=== PATIENT | male | born 1945 | race American Indian/Alaskan Native ===

== ENCOUNTER 2017-10-25 22:18 | Emergency (ER) | payer MEDICARE ==
[2017-10-25 23:35] LABS: Basophils # (Auto) 0.1 K/mm3 (0.0-0.1); Basophils % (Auto) 0.9 % (0.0-1.8); Eosinophils # (Auto) 0.2 K/mm3 (0.0-0.4); Eosinophils % (Auto) 3.1 % (0.0-4.3); Hematocrit 44.6 % (35.5-45.6); Hemoglobin 14.5 gm/dl (11.8-15.2); Lymphocytes # (Auto) 1.8 K/mm3 (1.2-5.4); Lymphocytes % (Auto) 22.5 % (13.4-35.0); Mean Corpuscular HGB Conc 33 % (32-34); Mean Corpuscular Hemoglobin 30 pg (28-32); Mean Corpuscular Volume 92 fl (84-94); Monocytes # (Auto) 0.8 K/mm3 (0.0-0.8); Monocytes % (Auto) 9.8 % (0.0-7.3); Platelet Count 230 K/mm3 (140-440); Red Blood Count 4.87 M/mm3 (3.65-5.03); Red Cell Distribution Width 14.9 % (13.2-15.2)
--- NOTE | 2017-10-25 23:36 | XRay Report ---
FINAL REPORT EXAM: XR CHEST ROUTINE 2V HISTORY: Shortness of breath TECHNIQUE: Two view chest PA and lateral PRIORS: None. FINDINGS: Cardiac and mediastinal contours are unremarkable. No focal pulmonary infiltrate is identified. No pleural fluid collection seen. Pulmonary vasculature is unremarkable. IMPRESSION: Negative two-view chest
[2017-10-26] LABS: BUN/Creatinine Ratio 14; Blood Urea Nitrogen 19 mg/dL (9-20); Calcium 9.4 mg/dL (8.4-10.2); Hemolysis Index 8
[2017-10-26 01:10] LABS: Bilirubin,Urine NEG (Negative); Blood,Urine NEG (Negative); Color,Urine Yellow (Yellow); Mucus,Urine 1+ /HPF; Urobilinogen,Urine < 2.0 mg/dL (<2.0)
--- NOTE | 2017-10-26 03:39 | Cat Scan Report ---
FINAL REPORT EXAM: CT HEAD/BRAIN WO CON HISTORY: SEVERE DIZZINESS. TECHNIQUE: Unenhanced axial CT images of the brain were obtained. No prior studies are available for comparison. FINDINGS: There is mild generalized volume loss, appropriate for patient's age. Minimal patchy periventricular low attenuation is seen, nonspecific but most likely chronic small vessel ischemic disease. The pugh-white differentiation is maintained. There is no extra-axial fluid collection, mass, mass effect, midline shift, hydrocephalus, or acute intracranial hemorrhage. There is minimal sinus mucosal thickening in scattered bilateral ethmoid air cells. The remainder of the visualized paranasal sinuses and mastoid air cells are clear. There is no skull fracture or other osseous abnormality. There is localized subcutaneous edema/hematoma in the posterior suboccipital scalp, at the midline, and additional minimal subcutaneous edema overlying the upper left parietal scalp. Query posttraumatic changes, and correlation with physical exam and clinical history is recommended. The visualized orbits and globes are grossly unremarkable. IMPRESSION: 1. No acute intracranial abnormality. Generalized volume loss and probable minimal chronic small vessel ischemic disease. 2. Mild localized subcutaneous edema/hematoma in the suboccipital scalp at the midline and additional minimal subcutaneous edema overlying the upper left parietal scalp. Query posttraumatic changes, and correlation with physical exam and clinical history is recommended.
[2017-10-26] MEDS ORDERED: NACL 0.9% 1000 ML 1,000 ML IV ONE (03:47)
[2017-10-26] MEDS ORDERED: ROBAXIN PO PRN (03:47)
--- NOTE | 2017-10-26 05:47 | Emergency Department Report ---
HPI - General Chief Complaint: Dizziness Time Seen by Provider: 10/26/17 03:03 - HPI HPI: 72-year-old male complaining of feeling dizzy while standing up. Patient also complaining of history of neck pain has been taking Robaxin without relief. Patient denies any shortness of breath, cough, chest pain, nausea or vomiting. Patient currently feels better stated his dizziness has gone away. Patient denies any focal weakness. ED Past Medical Hx - Past Medical History Previous Medical History?: Yes Hx Diabetes: Yes Additional medical history: Bronchitis - Surgical History Past Surgical History?: No - Social History Smoking Status: Current Every Day Smoker Substance Use Type: Alcohol, Marijuana - Medications Home Medications: Home Medications Medication Instructions Recorded Confirmed Last Taken Type Cyclobenzaprine [Flexeril] 10 mg PO TID PRN #14 tablet 10/26/17 Unknown Rx ED Review of Systems ROS: Stated complaint: DIZZINESS Other details as noted in HPI Comment: All other systems reviewed and negative Musculoskeletal: other (neck pain) Neurological: other (dizziness) Physical Exam - Physical Exam Vital Signs: Vital Signs 10/25/17 22:55 Temperature 98.1 F Pulse Rate 70 Blood Pressure 129/60 O2 Sat by Pulse 96 Oximetry Physical Exam: - Physical Exam Physical Exam: - General Limitations: No Limitations General appearance: alert, in no apparent distress. - Head Head exam: Present: atraumatic, normocephalic - Eye Eye exam: Present: normal appearance - ENT ENT exam: Present: mucous membranes moist - Neck Neck exam: Present: normal inspection - Respiratory Respiratory exam: Present: normal lung sounds bilaterally. Absent: respiratory distress - Cardiovascular Cardiovascular Exam: Present: normal rhythm, normal rate. Absent: systolic murmur, diastolic murmur, rubs, gallop - GI/Abdominal GI/Abdominal exam: Present: soft, normal bowel sounds - Extremities Exam Extremities exam: Present: normal inspection - Back Exam Back exam: Present: normal inspection - Neurological Exam Neurological exam: Present: alert, oriented X3 - Psychiatric Psychiatric exam: normal affect and mood - Skin Skin exam: Present: warm, dry, intact, normal color. Absent: rash ED Course Vital Signs 10/25/17 22:55 Temperature 98.1 F Pulse Rate 70 Blood Pressure 129/60 O2 Sat by Pulse 96 Oximetry ED Medical Decision Making - Lab Data Result diagrams: 10/25/17 23:06 10/25/17 23:06 Critical care attestation.: If time is entered above; I have spent that time in minutes in the direct care of this critically ill patient, excluding procedure time. ED Disposition Clinical Impression: Dizziness, Neck pain Disposition: - TO HOME OR SELFCARE Is pt being admited?: No Does the pt Need Aspirin: No Condition: Stable Prescriptions: Cyclobenzaprine [Flexeril] 10 mg PO TID PRN #14 tablet PRN Reason: Muscle Spasm Referrals: EMI MOSQUEDA MD [Primary Care Provider] - 3-5 Days
[2017-10-26 06:06] VITALS: BP 136/66
== END 2017-10-26 06:00 | disposition home or self-care (01) ==
LOC: ED 22:18
DX: R42 Dizziness and giddiness (principal); M54.2 Cervicalgia; E11.9 Type 2 diabetes mellitus without complications; F17.200 Nicotine dependence, unspecified, uncomplicated; F12.10 Cannabis abuse, uncomplicated
CPT/HCPCS: 36415; 70450; 71046; 80048; 81001; 84484; 85025; 93005; 93010; 96360; 99284; J7030

== ENCOUNTER 2017-10-30 08:03 | Outpatient (CLI) | payer MEDICARE ==
--- NOTE | 2017-11-06 17:24 | Vascular Lab Report ---
Infrarenal aortic duplex Reason for exam: Infrarenal abdominal aortic aneurysm Comments: The aorta is patent with scattered calcifications. No significant obstruction is seen. Maximum diameter of the aorta is 2.2 cm in the infrarenal portion. The superior mesenteric artery is patent with normal flow velocities. The celiac artery is patent with normal flow velocities. The right common iliac artery has a maximum diameter of 1.4 mm and has a normal flow velocity. The left common iliac artery has a maximum diameter 1.2 cm with a velocity 54 cm/s which is normal. Impression: No evidence of infrarenal abdominal aortic aneurysm. No evidence of common iliac artery aneurysms bilaterally. Mild atherosclerotic change of the aorta.
== END 2017-10-30 08:04 | disposition home or self-care (01) ==
LOC: US 08:03
PROVIDERS: ATTEND Internal Medicine
DX: Z13.6 Encounter for screening for cardiovascular disorders (principal); I70.0 Atherosclerosis of aorta; F17.200 Nicotine dependence, unspecified, uncomplicated